=== PATIENT | female | born 1995 | race Caucasian/White ===

== ENCOUNTER 2017-09-13 09:21 | Inpatient (IN) | payer MEDICAID ==
[~2017-09-13] VITALS: Ht 157.5 cm; Wt 68.2 kg
[~2017-09-13 09:21] MED LIST: EPHEDrine SULFATE 50 MG/5 ML SYG ONE; OXYTOCIN 30 UNITS/LR 500 ML BAG IV ONE
[2017-09-13] MEDS ORDERED: OXYTOCIN 30 UNITS/LR 500 ML IV SCH (10:00)
[2017-09-13] MEDS ORDERED: MISOPROSTOL 200 MCG TAB PR PRN ×2 (10:00→16:00)
[2017-09-13] MEDS ORDERED: OXYTOCIN 30 UNITS/LR 500 ML IV PRN ×2 (10:00→16:00)
[2017-09-13] MEDS ORDERED: METHYLERGONOVINE 0.2 MG INJ IM PRN ×2 (10:00→16:00)
[2017-09-13] MEDS ORDERED: CEFAZOLIN 2 GM/50 ML (PMX) 50 ML IV SCH (10:00)
[2017-09-13] MEDS ORDERED: CARBOPROST 250 MCG INJ IM PRN ×2 (10:00→16:00)
[2017-09-13 10:04] VITALS: Ht 157.5 cm; Wt 68.2 kg
[2017-09-13 10:05] VITALS: BP 118/77; PULSE 71; RESP 18
[2017-09-13] MEDS: LACTATED RINGER'S 1,000 ML IV SCH ×3 (10:09→11:13)
[2017-09-13 10:40] LABS: BASOPHILS % 0.5 % (0.0-2.0); EOSINOPHILS # 0.1 10^3/ul (0.0-0.5); EOSINOPHILS % 2.3 % (0.0-7.0); HEMATOCRIT 37.5 % (37.0-47.0); HEMOGLOBIN 13.4 g/dl (12.0-16.0); LYMPHOCYTES # 1.6 10^3/ul (0.8-2.9); LYMPHOCYTES % 25.8 % (15.0-51.0); MEAN CORPUSCULAR HEMOGLOBIN 29.6 pg (29.0-33.0); MEAN CORPUSCULAR HGB CONC 35.7 g/dl (32.0-37.0); MEAN PLATELET VOLUME 11.1 fl (7.4-10.4); MONOCYTE # 0.4 10^3/ul (0.3-0.9); MONOCYTES % 6.4 % (0.0-11.0); NEUTROPHILS % 64.8 % (39.0-77.0); PLATELET COUNT 251 10^3/UL (140-415); RED BLOOD COUNT 4.52 10^6/ul (4.20-5.40); RED CELL DISTRIBUTION WIDTH 12.3 % (11.5-14.5); WHITE BLOOD COUNT 6.2 10^3/ul (4.8-10.8)
[2017-09-13 11:03] LABS: INR 0.82; PROTIME 11.3 Sec (11.9-14.9); PT RATIO 0.9
[2017-09-13 11:04] LABS: PARTIAL THROMBOPLASTIN TIME 29.4 Sec (25.0-35.0)
[2017-09-13] MEDS ORDERED: morphine SULFATE/PF (10 MG/10 ML) INJ ONE (11:55)
--- NOTE | 2017-09-13 12:13 | HP ---
Date/Time of Note Date/Time of Note DATE: 09/13/17 TIME: 12:10 OB - History Hx of Present Free Text/Dictation EDC September 20, [address] [facility] at 39 weeks gestation with a history of previous being prepared for repeat C- section Estimated Due Date: Sep 20, 2017 : 2 Para: 1 Care: Good Care Medical Complications: None Past Family/Social History * Past Medical, Surgical, Family and Obstetric Histories reviewed from chart. Rubella: immune RPR/VDRL: Negative GBS Status: Negative HBsAG: Negative OB Admission Exam Vital Signs Vital Signs Vital Signs Date Time Temp Pulse Resp B/P Pulse Ox O2 Delivery O2 Flow Rate FiO2 09/13/17 10:05 98.4 71 18 118/77 Room Air Physical Exam HEENT: WNL Heart: Rhythm Normal Extremities: Normal Reflexes: Normal Membranes: Intact Heart Rate: 130's Accelerations: Accelerations Present Decelerations: No Decelerations Contractions on Admission: >10 Minutes Apart Intensity: Mild Last 72 hours Lab Results CBC & BMP 09/13/17 10:26 OB Assessment/Plan Reason for admission: other (39 weeks history of previous ) Other plan: 21 years old female history of previous admitted at 39 weeks gestation for repeat section she had been counseled regarding the complication of the surgery including but not limited to bowel and bladder injury infection hemorrhage wound hematoma and she would like to proceed with the operation AUSTEN JUNIOR MD Sep 13, 2017 12:13
[2017-09-13] MEDS ORDERED: PHENYLephrine (100 MCG/ML) 5ML SYG ONE (12:28)
--- NOTE | 2017-09-13 13:00 | OPR ---
Operative Report Planned Procedure Free Text/Dictation 21 years old female EDC September 20 2017 ,history of previous section. Admitted at 39 weeks gestation to undergo repeat section. He has been counseled regarding the complication of the surgery including but not limited to bowel bladder injury infection hemorrhage wound hematoma all her questions answered and she is willing to proceed with the operation. Procedure date Sep 13, 2017 Procedure(s) Repeat Performed by see signature line City Bus Driver HATTIE RUIZ Anesthesiologist: NIELS CHANG Pre-procedure diagnosis 39 weeks history of previous Anesthesia Type: spinal Post-Procedure Post-procedure diagnosis Repeat Findings Live Baby boy 9 and 9 Estimated Blood Loss: 500 - 600 mls Specimen(s) None Grafts/Implant(s) none Complication(s) none Pt Condition post procedure: stable Procedure Description Under satisfactory spinal anesthesia patient prepped and draped and placed in supine position. Pfannenstiel incision was made. Incision carried through the subcutaneous tissue. Fascia incised to the length of incision. Rectus muscle divided in midline. Peritoneum exposed and entered to a vertical incision. Exploration of abdomen revealed [gravid uterus at term normal-appearing tubes and ovaries.] Bladder flap was developed. Transverse incision was made in the lower segment of the uterus. Amniotic sac ruptured, [clear amniotic fluid noted. ] Live baby boy was delivered from unengaged vertex.Naso oropharyngeal suction was performed. Baby handed to the team for immediate attention. Patient received 20 units of Pitocin. Placenta delivered manually intact. Uterine cavity cleaned with a wet sponge and drainage established. Uterus closed in 2 layers using Monocryl #1 in continuous fashion. Peritoneal cavity irrigated with warm saline. Sponge needle instrument reported to be correct. Abdominal peritoneum closed with 2-0 chromic catgut continuously. Fascia closed with #1 PDS in a continuous fashion. Subcutaneous tissue irrigated with warm saline and approximated with 2-0 chromic catgut skin closed with N sorb. Estimated blood loss [600 cc]. Urine bag containing [200] mL of [clear] urine. Patient tolerated procedure well and transferred to recovery room in good condition. AUSTEN JUNIOR MD Sep 13, 2017 12:59
[2017-09-13] MEDS ORDERED: METOCLOPRAMIDE 10 MG INJ IV PRN (14:30)
[2017-09-13] MEDS ORDERED: ONDANSETRON 4 MG INJ IV PRN ×2 (14:30)
[2017-09-13] MEDS ORDERED: DIPHENHYDRAMINE 50 MG INJ IV PRN ×2 (14:30)
[2017-09-13] MEDS ORDERED: HYDROmorphONE (0.2 MG/ML) 10ML SYG IV PRN ×2 (14:30)
[2017-09-13] MEDS ORDERED: ALBUTEROL 0.083% (NEB) 2.5 MG/3 ML AMP HHN PRN (14:30)
[2017-09-13] MEDS ORDERED: MEPERIDINE 25 MG INJ IV PRN (14:30)
[2017-09-13] MEDS ORDERED: KETOROLAC 30 MG INJ IV PRN (14:30)
[2017-09-13] MEDS ORDERED: NALOXONE (0.4 MG/ML) INJ IV PRN (14:30)
[2017-09-13] MEDS ORDERED: FENTAnyl 50 MCG/ML VIAL IV PRN ×2 (14:30)
[2017-09-13] MEDS ORDERED: HYDROmorphONE 0.5 MG/0.5 ML SYG IV PRN ×2 (14:30)
[2017-09-13 15:30] VITALS: BP 150/94; PULSE 60; RESP 19
[2017-09-13 15:45] VITALS: BP 111/73; PULSE 67; RESP 19
[2017-09-13] MEDS ORDERED: OXYCODONE/ACETAMINOPHEN (5/325) TAB PO PRN ×2 (16:00)
[2017-09-13] MEDS ORDERED: HYDROCODONE/APAP (5/325) TAB PO PRN ×2 (16:00)
[2017-09-13] MEDS ORDERED: CEFAZOLIN 1 GM/50 ML (PMX) 50 ML IVPB SCH (16:00)
[2017-09-13] MEDS ORDERED: LANOLIN 7 GM TUBE TOP PRN (16:00)
[2017-09-13 16:15] VITALS: BP 140/85; PULSE 61; RESP 19
[2017-09-13] MEDS: IBUPROFEN 600 MG TAB PO SCH (16:36)
[2017-09-13 17:15] VITALS: BP 135/73; PULSE 61; RESP 19
[2017-09-13] MEDS: OXYTOCIN 30 UNITS/LR 500 ML IV SCH ×2 (17:28→22:21)
[2017-09-13 20:00] VITALS: BP 112/56; PULSE 65; RESP 20
[2017-09-14 00:45] VITALS: BP 112/63; PULSE 59; RESP 19
[2017-09-14] MEDS: KETOROLAC 30 MG INJ IV PRN ×2 (02:21→11:35)
[2017-09-14] MEDS: OXYTOCIN 30 UNITS/LR 500 ML IV SCH ×4 (02:21→11:50)
[2017-09-14 04:45] VITALS: BP 98/55; PULSE 61; RESP 20
[2017-09-14] MEDS: IBUPROFEN 600 MG TAB PO SCH ×5 (06:00→23:25)
[2017-09-14] MEDS ORDERED: LACTATED RINGER'S 1,000 ML IV SCH (06:30)
[2017-09-14 07:50] VITALS: BP 108/66; PULSE 72; RESP 19
[2017-09-14] MEDS: SENNA/DOCUSATE NA (8.6MG/50MG) TAB PO SCH ×2 (10:05→21:42)
[2017-09-14 11:29] LABS: BASOPHILS % 0.3 % (0.0-2.0); EOSINOPHILS # 0.2 10^3/ul (0.0-0.5); EOSINOPHILS % 1.4 % (0.0-7.0); HEMATOCRIT 36.5 % (37.0-47.0); HEMOGLOBIN 12.9 g/dl (12.0-16.0); LYMPHOCYTES # 1.5 10^3/ul (0.8-2.9); LYMPHOCYTES % 13.9 % (15.0-51.0); MEAN CORPUSCULAR HEMOGLOBIN 29.7 pg (29.0-33.0); MEAN CORPUSCULAR HGB CONC 35.3 g/dl (32.0-37.0); MEAN CORPUSCULAR VOLUME 84.1 fl (82.0-101.0); MEAN PLATELET VOLUME 11.1 fl (7.4-10.4); MONOCYTE # 0.7 10^3/ul (0.3-0.9); MONOCYTES % 6.2 % (0.0-11.0); NEUTROPHIL # 8.3 10^3/ul (1.6-7.5); PLATELET COUNT 211 10^3/UL (140-415); RED BLOOD COUNT 4.34 10^6/ul (4.20-5.40); RED CELL DISTRIBUTION WIDTH 12.3 % (11.5-14.5); WHITE BLOOD COUNT 10.6 10^3/ul (4.8-10.8)
[2017-09-14 11:35] VITALS: BP 111/63; PULSE 71; RESP 19
--- NOTE | 2017-09-14 14:04 | QN ---
Documentation Comment No complaint Afebrile VSS Abdomen soft ND POD #1 Stable Continue present care. TRACY LAU MD Sep 14, 2017 14:04
[2017-09-14 16:00] VITALS: BP 98/58; RESP 18
[2017-09-14 20:00] VITALS: BP 119/69; PULSE 70; RESP 20
[2017-09-15 04:33] VITALS: BP 110/64; PULSE 70; RESP 20
[2017-09-15] MEDS: IBUPROFEN 600 MG TAB PO SCH ×4 (05:08→23:29)
[2017-09-15 08:00] VITALS: BP 117/66; PULSE 60
[2017-09-15] MEDS: SENNA/DOCUSATE NA (8.6MG/50MG) TAB PO SCH ×2 (09:05→20:28)
[2017-09-15 15:45] VITALS: BP 124/72; PULSE 62; RESP 18
[2017-09-15] MEDS ORDERED: MAGNESIUM HYDROXIDE 30ML CUP PO ONE (17:30)
--- NOTE | 2017-09-15 17:40 | QN ---
Documentation Comment No complaint Afebrile VSS Abdomen soft ND POD #2 Stable Continue present care. TRACY LAU MD Sep 15, 2017 17:40
--- NOTE | 2017-09-15 17:42 | DS ---
Date/Time of Note Date/Time of Note DATE: 09/15/17 TIME: 17:41 Obstetrical Discharge Record Final Diagnosis Final Diagnosis: Term delivered Section Section: Repeat Condition on Discharge Physical Assessment Voiding: Yes Bowel Movement: Yes Breast: Soft, non-tender, Filling Fundus: Firm Abdomen and Incision: Incision intact Calf Tenderness: No Patient Condition: Stable TRACY LAU MD Sep 15, 2017 17:42
[2017-09-15 19:30] VITALS: BP 121/77; PULSE 68; RESP 19
[2017-09-16 04:20] VITALS: BP 110/60; PULSE 61; RESP 19
[2017-09-16] MEDS: IBUPROFEN 600 MG TAB PO SCH ×2 (05:46→11:54)
[2017-09-16 08:15] VITALS: BP 106/59; PULSE 68; RESP 19
[2017-09-16] MEDS ORDERED: DIPHTH/TET/ACEL PERTUSS (ADULT) 0.5 ML VIAL IM* ONE (09:00)
[2017-09-16] MEDS: SENNA/DOCUSATE NA (8.6MG/50MG) TAB PO SCH (09:37)
== END 2017-09-16 13:24 | disposition home or self-care (01) | DRG 766 ==
LOC: L-D 09:21 → PP1 15:22
PROVIDERS: ADMIT Obstetrics & Gynecology; ATTEND Obstetrics & Gynecology
PROC: 3E033VJ Introduction of Other Hormone into Peripheral Vein, Percutaneous Approach (ICD-10-PCS; 2017-09-13)
PROC: 10D00Z1 Extraction of Products of Conception, Low, Open Approach (ICD-10-PCS; principal; 2017-09-13 12:00)
DX: O99.214 Obesity complicating childbirth (principal); E66.01 Morbid (severe) obesity due to excess calories; O34.211 Maternal care for low transverse scar from previous cesarean delivery; Z68.27 Body mass index [BMI] 27.0-27.9, adult; Z3A.39 39 weeks gestation of pregnancy; Z37.0 Single live birth
CPT/HCPCS: 85025; 85610; 85730; 86592; 86850; 86900; 86901; 87340; 90715; 94760; 99464; J0690; J1200; J1885; J2274; J2370; J2590; J7120

== ENCOUNTER 2018-12-04 13:16 | Outpatient (CLI) | payer MEDICAID ==
[~2018-12-04] VITALS: Ht 154.9 cm; Wt 68.2 kg
[2018-12-04 13:36] VITALS: Ht 154.9 cm; Wt 68.2 kg
[2018-12-04 13:37] VITALS: BP 111/76; PULSE 64
[2018-12-04] MEDS ORDERED: PREN1TAB13 PO (13:48)
[2018-12-04] MEDS ORDERED: FER325 PO (13:48)
[2018-12-04] MEDS ORDERED: CALC-143 PO (13:49)
--- NOTE | 2018-12-04 16:01 | TRIAGE ---
OB Triage Datetime Report Generated by CPN: 12/04/2018 16:01 Datetime: 12/04/2018 15:00 Labor Evaluation Frequency: 0 Monitor Mode: External Heart Rate FHR Baseline Rate: 120 Monitor Mode: External US FHR Baseline Changes: No Baseline Change Variability: Moderate 6-25 bpm Accelerations: 15X15 Decelerations: None Category: Category I Pain Assessment Pain Scale: 0 Pain Presence: None/Denies Pain Type: N/A Pain Goal: 0 Datetime: 12/04/2018 14:30 Labor Evaluation Frequency: 0 Monitor Mode: External Heart Rate FHR Baseline Rate: 120 Monitor Mode: External US FHR Baseline Changes: No Baseline Change Variability: Moderate 6-25 bpm Accelerations: 15X15 Decelerations: None Category: Category I Pain Assessment Pain Scale: 0 Pain Presence: None/Denies Pain Type: N/A Pain Goal: 0 Datetime: 12/04/2018 14:00 Labor Evaluation Frequency: 0 Monitor Mode: External Heart Rate FHR Baseline Rate: 120 Monitor Mode: External US FHR Baseline Changes: No Baseline Change Variability: Moderate 6-25 bpm Accelerations: 15X15 Decelerations: None Category: Category I Pain Assessment Pain Scale: 0 Pain Presence: None/Denies Pain Type: N/A Pain Goal: 0 Datetime: 12/04/2018 13:31 Stage of : OB Triage Assessment Type: Triage Maternal Assessment Level of Consciousness: Fully Conscious DTR's/Clonus: DTRs 2+; No Clonus Headache: Denies Blurred Vision: No Respiratory Effort: Unlabored; Regular Rhythm; Equal Expansion Breath Sounds, Left: Clear and Equal Breath Sounds, Right: Clear and Equal Nausea/Vomiting: Denies RUQ Epigastric Pain: Denies Lower Extremities Edema: None Degree: None Upper Extremities Edema: None Facial Edema: None Temperature Route: Axillary Fall Risk Assessment History of Falling: (0) No Secondary Diagnosis: (0) No Ambulatory Aid: (0) Bedrest/Nurse Assist IV Therapy: (0) No Gait: (0) Normal/Bedrest/Immobile Mental Status: (0) Oriented to Own Ability Fall Score: 0 Fall Risk Score Definition: No Risk: No action required Datetime: 12/04/2018 13:28 Time of Arrival: 12/04/2018 13:01 EGA: 35.0 Arrived By: Ambulatory Arrived From: Office Chief Complaint: SGA Movement: Present Contractions: Denies/Absent Rupture of Membranes: Denies Vaginal Bleeding: None Vaginal Discharge: Denies Recent Sexual Intercouse: Denies Abdominal Trauma: Not Applicable Patient Complaints: None Time Provider Notified: 12/04/2018 14:00 Provider Notified: DR. ABREU Initial Plan: NST/REBECCA/POORNIMAW
--- NOTE | 2018-12-04 16:22 | PN ---
Triage Information Date/Time Reason for visit: Patient sent from primary OB for NST and biophysical profile due to size less than date Weeks of Gestation 35 weeks /Para Diabetes: none Hypertention: none Objective Vital Signs Date Temp Pulse Resp B/P (MAP) Pulse Ox O2 O2 Flow FiO2 Time Delivery Rate 12/04/18 98.5 64 111/76 Room Air 13:37 (88) Heart Rate: 140's Contractions: None Results/Medications Imaging Results Gestation: Single live intrauterine gestation. Cardiac activity: 137 beats per minute. Presentation: Vertex. Placenta: Location: Anterior. Appearance: No previa or abruption. Measurements: BPD = 8.1 cm, 32 weeks and 3 days HC = 30.3 cm, 33 weeks and 5 days AC = 31.3 cm, 35 weeks and 2 days FL = 6.4 cm, 33 weeks and 1 day Gestational Age: AUA estimated gestational age: 33 weeks 5 days LMP estimated gestational age: 35 weeks 0 days AUA estimated date of delivery: 01/17/19 The EFW = 2381 g, 25.8%ile based on LMP age. Disposition: Discharge Assessment/Plan 23 years old 3 para 2001 with single intrauterine at 35 weeks sent for NST and biophysical profile by her primary OB. She states good movement. She denies nausea, vomiting, shortness of breath, chest pain, headache, visual changes, vaginal bleeding or LOF. - FHR: No sign of metabolic acidosis- Category I - Continuous EFM, toco - Contractions: None. Ultrasound performed as noted above there is a 1 week difference between gestational age by ultrasound with LMP. Biophysical profile 8 out of 8, ANTONETTE 9.2 - Symptoms and sign of labor, preeclampsia, kick count discussed with patient, she voiced understanding. All of her questions answered. - Patient was discharged home in stable condition with the appropriate discharge instructions provided. I would like patient to have close follow-up with her primary physician or outpatient clinic in 1-2 days, copy of ultrasound given to patient. I strongly recommend come back to triage for worsening symptoms or any other urgent concerns. PRASHANT MATSON Dec 04, 2018 16:22
== END 2018-12-04 15:20 | disposition home or self-care (01) ==
LOC: OBT 13:16 → L-D 13:16 → OBT 15:20
PROVIDERS: ATTEND Obstetrics & Gynecology
DX: O26.843 Uterine size-date discrepancy, third trimester (principal); Z3A.35 35 weeks gestation of pregnancy
CPT/HCPCS: 76815; 76818; Z7500; G0463

== ENCOUNTER 2019-01-01 15:06 | Inpatient (IN) | payer MEDICAID ==
[~2019-01-01] VITALS: Ht 152.4 cm; Wt 67.1 kg
[~2019-01-01 15:06] MED LIST changes: +CALC-143 PO; -EPHEDrine SULFATE 50 MG/5 ML SYG ONE; +FER325 PO; +PHENYLephrine (100 MCG/ML) 5ML SYG ONE; +PREN1TAB13 PO
[2019-01-01 15:44] VITALS: Ht 152.4 cm; Wt 67.1 kg
[2019-01-01 15:52] VITALS: BP 121/69; PULSE 79; RESP 18
[2019-01-01] MEDS ORDERED: MISOPROSTOL 200 MCG TAB PR PRN ×2 (16:00→19:00)
[2019-01-01] MEDS ORDERED: CEFAZOLIN 2 GM/50 ML (PMX) 50 ML IVPB SCH ×2 (16:00→19:00)
[2019-01-01] MEDS ORDERED: CARBOPROST 250 MCG INJ IM PRN ×2 (16:00→19:00)
[2019-01-01] MEDS ORDERED: OXYTOCIN 30 UNITS/LR 500 ML IV SCH ×2 (16:00→18:45)
[2019-01-01] MEDS ORDERED: METHYLERGONOVINE 0.2 MG INJ IM PRN ×2 (16:00→19:00)
[2019-01-01] MEDS ORDERED: OXYTOCIN 30 UNITS/LR 500 ML IV PRN ×2 (16:00→19:00)
[2019-01-01] MEDS: LACTATED RINGER'S 1,000 ML IV SCH ×2 (16:22→17:32)
--- NOTE | 2019-01-01 17:15 | PREAC ---
Date/Time of Note Date/Time of Note DATE: 01/01/19 TIME: 17:14 Anesthesia Eval and Record Evaluation Time Pre-Procedure Interview DATE: 01/01/19 TIME: 17:14 Age 23 Sex female NPO: 8 hrs Preoperative diagnosis Planned procedure repeat c/s Past Medical History Past Medical History: None Surgery & Anesthesia Issues No known issue Meds Anticoagulation: No Beta Josué within 24 hr: No Reason Beta Josué not given: Pt. not on B-Josué Reported Medications Calcium Citrate/Vitamin D (Citracal-Vitamin D 200 MG-250) 1 Each Tablet, 1 EACH PO DAILY, TAB 12/04/18 Ferrous Sulfate* (Ferrous Sulfate*) 325 Mg Tabec, 325 MG PO DAILY, TAB 12/04/18 Pnv95/Ferrous Fumarate/FA ( Vitamins Tablet) 1 Each Tablet, 1 EACH PO DAILY, TAB 12/04/18 Current Medications Lactated Ringer's 1,000 ml @ 125 mls/hr Q8H IV ; Start 01/01/19 at 15:45 Cefazolin Sodium/ Dextrose 50 ml @ 100 mls/hr ONCE IVPB ; Start 01/01/19 at 16:00 Oxytocin/Lactated Ringer's 500 ml @ 125 mls/hr POST IV ; Start 01/01/19 at 16:00 Oxytocin/Lactated Ringer's 500 ml @ 0 mls/hr ONCE PRN IV .VAGINAL BLEEDING; Start 01/01/19 at 16:00 Methylergonovine Maleate (Methergine) 0.2 mg ONCE PRN IM .VAGINAL BLEEDING; Start 01/01/19 at 16:00 Carboprost Tromethamine (Hemabate) 250 mcg ONCE PRN IM .VAGINAL BLEEDING; Start 01/01/19 at 16:00 Misoprostol (Cytotec) 1,000 mcg ONCE PRN AR .VAGINAL BLEEDING; Start 01/01/19 at 16:00 Meds reviewed: Yes Allergies Coded Allergies: No Known Allergy (Unverified , 01/01/19) Allergies Reviewed: Yes Labs/Studies Labs Reviewed: Reviewed by anesthesiologist Result Diagram: 01/01/19 1420 Laboratory Tests 01/01/19 14:20 test: Positive Pre-procedure Exam Last vitals Vital Signs Date Temp Pulse Resp B/P (MAP) Pulse Ox O2 O2 Flow FiO2 Time Delivery Rate 01/01/19 98.1 79 18 121/69 Room Air 15:52 (86) Airway: Adequate mouth opening, Adequate thyromental dist Mallampati: Mallampati II Teeth: Normal Lung: Normal Heart: Normal ASA Physical Status ASA physical status: 2 Emergency: None Planned Anesthetic Neuraxial: Spinal Planned Pain Management Sub-arachniod narcotics Pre-operative Attestations Prior to commencing anesthesia and surgery, the patient was re-evaluated, there was verification of: *The patient's identity *The results of appropriate recent lab work and preoperative vital signs *The above evaluation not changing prior to induction *Anesthetic plan, risk benefits, alternative and complications discussed with patient/family; questions answered; patient/family understands, accepts and wishes to proceed. NIELS CHANG Jan 01, 2019 17:15
[2019-01-01] MEDS ORDERED: HYDROmorphONE 1 MG/5 ML IV SYRINGE IV PRN ×3 (17:30)
[2019-01-01] MEDS ORDERED: HYDROmorphONE 0.5 MG/0.5 ML SYG IV PRN ×2 (17:30)
[2019-01-01] MEDS ORDERED: ALBUTEROL 0.083% (NEB) 2.5 MG/3 ML AMP HHN PRN (17:30)
[2019-01-01] MEDS ORDERED: KETOROLAC 30 MG INJ IV PRN (17:30)
[2019-01-01] MEDS ORDERED: NALOXONE (0.4 MG/ML) INJ IV PRN (17:30)
[2019-01-01] MEDS ORDERED: METOCLOPRAMIDE 10 MG INJ IV PRN (17:30)
[2019-01-01] MEDS ORDERED: FENTAnyl 50 MCG/ML VIAL IV PRN ×3 (17:30)
[2019-01-01] MEDS ORDERED: DIPHENHYDRAMINE 50 MG INJ IV PRN ×2 (17:30)
[2019-01-01] MEDS ORDERED: ONDANSETRON 4 MG INJ IV PRN ×2 (17:30)
[2019-01-01] MEDS ORDERED: morphine SULFATE/PF (10 MG/10 ML) INJ ONE (17:42)
--- NOTE | 2019-01-01 18:09 | PREOPHP ---
DATE OF ADMISSION: 01/08/2019 HISTORY OF PRESENT ILLNESS: Ms. Efren Mina is a 23-year-old 3, para 2, EDC of 01/08/2019 i ntrauterine at 39 weeks' gestational age, admitted today for elective repeat angeli staley. She denies any contractions, vaginal bleeding or discharge. Her care took place with Dr. Mckinney. PAST MEDICAL HISTORY: None. MEDICATIONS: vitamins. PAST SURGICAL HISTORY: x2 previous . OBSTETRIC HISTORY: x2 previous . GYNECOLOGIC HISTORY: 12, regular 3 to 4 days. Denies any sexually transmitted infections. Sexually active with 1 partner. SOCIAL HISTORY: Denies any smoking, drugs or alcohol. FAMILY HISTORY: None. REVIEW OF SYSTEMS: All within normal except history of present illness. PHYSICAL EXAMINATION: HEENT: Within normal. LUNGS: CTA bilateral. CARDIOVASCULAR: S1, S2. Regular rate, rhythm. ABDOMEN: Gravid, nontender. Negative CVA bilateral. EXTREMITIES: No calf tenderness. PELVIC: Vaginal exam deferred. heart tracing category 1. Tocometer: Irregular contractions. ASSESSMENT: 1. Intrauterine at 39 weeks' gestational age. 2. Previous section x2. 3. Desires elective repeat delivery. 4. Declined vaginal after . 5. Desires tubal sterilization. PLAN: Consent for repeat delivery with bilateral tubal sterilization. Risks, benefits and alternatives were explained. All questions were answered. Dictated By: EILEEN NORIEGA/AHMET Conf#: [id number] DID#: [id number]
--- NOTE | 2019-01-01 18:45 | OPPN ---
Date/Time of Note Date/Time of Note DATE: 01/01/19 TIME: 18:42 Operative Report Planned Procedure Procedure date Jan 01, 2019 Procedure(s) repeat low transverse CD, with bilateral tubal ligation rajani method Performed by see signature line Equipment Hire Manager: PRASHANT MATSON 2nd Equipment Hire Manager none Pre-procedure diagnosis iup at 39 wks ga, previous CD x 2, desire elective repeat CD with bilateral tubal ligation , decline [id number] Anesthesia Type: [id number] spinal Post-Procedure Post-procedure diagnosis same Findings a viable male 9/9 weight 3,205 grams, normal uterus tubes and ovaries Estimated Blood Loss: 500 - 600 mls Specimen(s) portion of the right and left fallopian tube Grafts/Implant(s) none Complication(s) none EILEEN ABREU MD Jan 01, 2019 18:45
[2019-01-01] MEDS ORDERED: NACL 0.9% 3 ML SYG IV SCH (19:00)
[2019-01-01] MEDS ORDERED: LANOLIN HPA 1 PKT TOP PRN (19:00)
[2019-01-01] MEDS ORDERED: OXYCODONE/ACETAMINOPHEN (5/325) TAB PO PRN (19:00)
[2019-01-01 22:15] VITALS: BP 115/69; PULSE 81; RESP 18
[2019-01-01] MEDS: IBUPROFEN 600 MG TAB PO SCH (23:45)
[2019-01-01] MEDS: CEFAZOLIN 2 GM/50 ML (PMX) 50 ML IVPB SCH (23:45)
[2019-01-02 03:37] VITALS: BP 106/54; PULSE 82; RESP 18
--- NOTE | 2019-01-02 04:08 | PAC ---
Date/Time of Note Date/Time of Note DATE: 01/02/19 TIME: 04:08 Post-Anesthesia Notes Post-Anesthesia Note Last documented vital signs Vital Signs Date Temp Pulse Resp B/P (MAP) Pulse Ox O2 O2 Flow FiO2 Time Delivery Rate 01/02/19 98.2 82 18 106/54 98 Room Air 03:37 (71) Activity: WNL Respiratory function: WNL Cardiovascular function: WNL Mental status: Baseline Pain reasonably controlled: Yes Hydration appropriate: Yes Nausea/Vomiting absent: Yes NIELS CHANG Jan 02, 2019 04:08
[2019-01-02 05:40] VITALS: BP 113/60; PULSE 75; RESP 18
[2019-01-02] MEDS: KETOROLAC 30 MG INJ IV PRN ×2 (05:42→15:32)
[2019-01-02] MEDS: IBUPROFEN 600 MG TAB PO SCH ×3 (05:46→18:00)
[2019-01-02] MEDS: CEFAZOLIN 2 GM/50 ML (PMX) 50 ML IVPB SCH ×2 (07:16→15:07)
[2019-01-02 08:15] VITALS: BP 102/52; PULSE 76; RESP 18
[2019-01-02 11:30] VITALS: BP 101/59; PULSE 72; RESP 18
--- NOTE | 2019-01-02 15:20 | OPR ---
DATE OF OPERATION: 01/01/2019 PRIMARY DIAGNOSES: 1. Intrauterine at 39 weeks' gestational age. 2. Previous section x2. 3. Desires elective repeat delivery with bilateral tubal ligation. 4. Declined vaginal after . POSTOPERATIVE DIAGNOSES: 1. Intrauterine at 39 weeks' gestational age. 2. Previous section x2. 3. Desires elective repeat delivery with bilateral tubal ligation. 4. Declined vaginal after . PROCEDURES: Repeat low transverse delivery with bilateral tubal ligation, Ministerio method. SURGEON: James Smith MD MAKE UP ARRANGER: Marsha Henderson MD ANESTHESIA: Spinal. COMPLICATIONS: None. ESTIMATED BLOOD LOSS: 500 mL. FINDINGS: A viable male, 9 and 9 respectively at 1 and 5 minutes, weight 3205 grams, normal ut erus, tubes and ovaries. DESCRIPTION OF PROCEDURE: After explaining the risks, benefits and alternatives, the patient had con sent signed in chart. The patient was taken to the operating room where spinal anesthesia was found to be adequate. She was then prepared and draped in normal sterile fashion in dorsal supine position with a leftward tilt. A Pfannenstiel skin incision was then made with scalpel and carried to the un derlying fascia. The fascia was incised in midline and incision was extended laterally with Hall sci ssors. The superior aspect of the fascial incision was grasped with curved clamps, elevated and the underlying rectus muscles were dissected off bluntly. Attention was then turned to the inferior aspe ct of incision which in similar fashion was grasped, tented up with curved clamps and the rectus musc les were dissected off bluntly. The rectus muscle was in midline, peritoneum identified, t ented up and entered sharply with Metzenbaum scissors. The peritoneal incision was extended superior ly and inferiorly with good visualization of the bladder. Bladder blade was then inserted and the lo wer uterine segment was incised in transverse fashion with the scalpel. The lower uterine segment wa s incised in transverse fashion with the scalpel. The incision was extended laterally. The bladder blade was removed and the infant's head was delivered atraumatically. The nose and mouth were suctio grabiel. Cord was clamped and cut. The was handed off to awaiting code inspector. At this point u sing a Borden, the left fallopian tube was grasped 4 cm from the cornual region. A 3 cm at the [facility] ent of tube was ligated with a free tie x2 and excised. Good hemostasis was noted. Similarly, the r ight fallopian tube was ligated. At this point, good hemostasis was noted. The uterus was returned to the abdomen. The gutters were cleared of all clots. The peritoneum and rectus abdominis muscles were reapproximated with 3-0 Vicryl in interrupted fashion. The fascia was reapproximated with 0 Michael ryl in a running fashion. The subcutaneous tissue was reapproximated with 2-0 plain gut in a running fashion. The skin was closed with absorbable huong. The patient tolerated procedure well. All c ounts were correct. The patient was taken to recovery room in stable condition. Dictated By: JAMES NORIEGA/AHMET Conf#: [id number] DID#: [id number]
[2019-01-02 15:32] VITALS: BP 99/51; PULSE 71; RESP 18
[2019-01-02 19:45] VITALS: BP 97/52; PULSE 86; RESP 18
[2019-01-02] MEDS: OXYCODONE/ACETAMINOPHEN (5/325) TAB PO PRN (22:46)
[2019-01-03 04:00] VITALS: BP 98/57; PULSE 83; RESP 18
[2019-01-03] MEDS: IBUPROFEN 600 MG TAB PO SCH ×5 (05:39→23:43)
[2019-01-03 08:30] VITALS: BP 100/51; PULSE 67; RESP 18
--- NOTE | 2019-01-03 12:47 | QN ---
Documentation Comment passing flatus no BM yet c/o incisional pain vss afebrile max T 99 abdomen soft wound dry calf neg for tenderness lochia min A s/p RC/S #2 P as ordered CAMILA CUEVAS MD Jan 03, 2019 12:47
[2019-01-03] MEDS: OXYCODONE/ACETAMINOPHEN (5/325) TAB PO PRN (13:27)
[2019-01-03 16:03] VITALS: BP 112/55; PULSE 66; RESP 18
[2019-01-03 19:30] VITALS: BP 109/61; PULSE 68; RESP 19
[2019-01-04] MEDS: OXYCODONE/ACETAMINOPHEN (5/325) TAB PO PRN (00:35)
[2019-01-04 03:30] VITALS: BP 115/60; PULSE 69; RESP 18
[2019-01-04] MEDS: IBUPROFEN 600 MG TAB PO SCH ×2 (05:37→12:11)
[2019-01-04 07:50] VITALS: BP 93/56; PULSE 58
[2019-01-04 15:37] VITALS: BP 106/57; PULSE 81; RESP 18
--- NOTE | 2019-01-05 17:28 | DELSUM ---
Delivery Summary A-C Datetime Report Generated by CPN: 01/05/2019 17:28 DELIVERY PERSONNEL Orchestra Leader: Perdomo, Lidya MATERNAL INFORMATION Delivery Anesthesia: Spinal Medications in Delivery: See anes. records Delivery QBL (ml): 600 Placenta Cultured: No Maternal Complications: None LABOR SUMMARY EDC: 01/08/2019 00:00 No. Babies in Womb: 1 Attempted: No Labor Anesthesia: Intrathecal LABOR INFORMATION Reason for Induction: Not Applicable Oxytocin: N/A Group B Beta Strep: Negative Antibiotics # of Doses: 1 Antibiotics Time of Last Dose: 01/01/2019 18:00 Steroids Given: None Reason Steroids Not Administered: Not Applicable MEMBRANES Membranes Rupture Method: Artificial Rupture of Membranes: 01/01/2019 18:10 Length of Rupture (hr): 0.00 Amniotic Fluid Color: Clear Amniotic Fluid Amount: Moderate Amniotic Fluid Odor: None STAGES OF LABOR Stage 3 hr: 0 Stage 3 min: 1 CSECTION DELIVERY Primary Indication: > 2 Previous CSections Secondary Indication: N/A CSection Urgency: Non Elective CSection Incidence: Repeat Labor: No Labor Elective: Nonelective CSection Incision: Lower Uterine Transverse Sterilization Procedure: Ministerio BABY A INFORMATION Delivery Date/Time: 01/01/2019 18:10 Method of Delivery: Born in Route : No : N/A Forceps: N/A Vacuum Extraction: N/A Shoulder Dystocia : N/A SHOULDER DYSTOCIA BABY A Delivery Date/Time: 01/01/2019 18:10 PRESENTATION/POSITION BABY A Presentation: Cephalic Cephalic Presentation: Vertex Breech Presentation: N/A PLACENTA INFORMATION BABY A Placenta Delivery Time : 01/01/2019 18:11 Placenta Method of Delivery: Manual Removal Placenta Status: Delivered SCORES BABY A Heart Rate 1 min: >100 bpm Resp Effort 1 min: Good Cry Reflex Irritability 1 min: Cough/Sneeze/Pulls Away Muscle Tone 1 min: Active Motion Color 1 min: Body Haena, Extremit Blue Resuscitation Effort 1 min: Tactile Stimulation SCORE 1 MIN: 9 Heart Rate 5 min: >100 bpm Resp Effort 5 min: Good Cry Reflex Irritability 5 min: Cough/Sneeze/Pulls Away Muscle Tone 5 min: Active Motion Color 5 min: Body Haena, Extremit Blue Resuscitation Effort 5 min: Tactile Stimulation SCORE 5 MIN: 9 INFANT INFORMATION BABY A Gestational Age at Delivery: 39.0 Gestational Status: Full Term- 39- 40.6 Weeks Outcome : Liveborn Infant Condition : Stable Infant Sex: Male IDENTIFICATION/MEDS BABY A ID Band Number: [id number] ID Band Location: Right Leg; Left Arm Sensor Applied: Yes Sensor Number: [id number] Sensor Location : Cord Clamp Vitamin K Given : Not Given Erythromycin Given: Not Given WEIGHT/LENGTH BABY A Infant Birthweight (gm): 3205 Infant Weight (lb): 7 Weight (oz): 1 Length (in): 19.50 Infant Length (cm): 49.53 CORD INFORMATION BABY A No. Cord Vessels: 3 Nuchal Cord : N/A Cord Blood Taken: Yes Infant Suction: Mouth; Nose ASSESSMENT BABY A Infant Complications: None Physical Findings at Delivery: Within Normal Limits Infant Respirations: Appears Normal Manager System/ALS Called : No Transferred To: Remains with Mother
--- NOTE | 2019-01-05 20:32 | QN ---
Documentation Comment This is a late entry note for 01/04/2019 Postop day #3 S/P R C/S Patient stable and afebrile Tolerating regular diet and ambulating and voiding without any difficulties, passing flatus Vital signs stable VS - Last 72 Hours, by Label Date Temp Pulse Resp B/P (MAP) Pulse Ox O2 O2 Flow FiO2 Time Delivery Rate 01/04/19 98.4 81 18 106/57 Room Air 15:37 (73) 01/04/19 97.6 58 93/56 (68) Room Air 07:50 01/04/19 98.0 69 18 115/60 Room Air 03:30 (78) 01/03/19 98.0 68 19 109/61 Room Air 19:30 (77) 01/03/19 98.2 66 18 112/55 Room Air 16:03 (74) 01/03/19 Room Air 13:27 01/03/19 99.0 67 18 100/51 Room Air 08:30 (67) 01/03/19 97.8 83 18 98/57 (71) Room Air 04:00 wbc 10.9 Hb/hct 11.5/33.5 Abdomen soft, fundus firm Incision C/D/I Extremities nontender Assessment and plan; Patient stable and doing well Encouraged to ambulate discharge home today F/U with OBGYN in 2 and 6 weeks RACH WRIGHT MD Jan 05, 2019 20:32
--- NOTE | 2019-01-05 20:38 | DS ---
Date/Time of Note Date/Time of Note DATE: 01/05/19 TIME: 20:34 Obstetrical Discharge Record Final Diagnosis Final Diagnosis: Term delivered Other Final Diagnosis This is a late entry note for 01/04/2019 Postop day #3 S/P R C/S Patient stable and afebrile and doing well Tolerating regular diet and ambulating and voiding without any difficulties, passing flatus Vital signs stable Abdomen soft, fundus firm Incision C/D/I Extremities nontender Discharge home today F/U with OBGYN in 2 and 6 weeks Section Section: Repeat Condition on Discharge Physical Assessment Last Vitals: VS - Last 72 Hours, by Label Date Temp Pulse Resp B/P (MAP) Pulse Ox O2 O2 Flow FiO2 Time Delivery Rate 01/04/19 98.4 81 18 106/57 Room Air 15:37 (73) 01/04/19 97.6 58 93/56 (68) Room Air 07:50 01/04/19 98.0 69 18 115/60 Room Air 03:30 (78) 01/03/19 98.0 68 19 109/61 Room Air 19:30 (77) 01/03/19 98.2 66 18 112/55 Room Air 16:03 (74) 01/03/19 Room Air 13:27 01/03/19 99.0 67 18 100/51 Room Air 08:30 (67) 01/03/19 97.8 83 18 98/57 (71) Room Air 04:00 Voiding: Yes Bowel Movement: Yes Breast: Soft, non-tender Fundus: Firm Calf Tenderness: No Patient Condition: Good Copies To: CC: EILEEN ABREU MD ; RACH WRIGHT MD Jan 05, 2019 20:38
== END 2019-01-04 17:28 | disposition home or self-care (01) | DRG 785 ==
LOC: L-D 15:06 → PP1 21:53
PROVIDERS: ADMIT Obstetrics & Gynecology; ATTEND Obstetrics & Gynecology
PROC: 0UL70ZZ Occlusion of Bilateral Fallopian Tubes, Open Approach (ICD-10-PCS; 2019-01-01)
PROC: 3E033VJ Introduction of Other Hormone into Peripheral Vein, Percutaneous Approach (ICD-10-PCS; 2019-01-01)
PROC: 10D00Z1 Extraction of Products of Conception, Low, Open Approach (ICD-10-PCS; principal; 2019-01-01 17:00)
DX: O34.211 Maternal care for low transverse scar from previous cesarean delivery (principal); Z3A.39 39 weeks gestation of pregnancy; Z37.0 Single live birth; Z30.2 Encounter for sterilization
CPT/HCPCS: 85025; 85610; 85730; 86592; 86850; 86900; 86901; 88302; 99464; J0690; J1885; J2274; J2370; J2590; J7120